=== PATIENT | female | born 1975 | race Two or more races ===

== ENCOUNTER 2025-06-09 09:27 | Emergency (ER) | payer OTHER ==
[~2025-06-09] VITALS: Ht 149.9 cm; Wt 48.8 kg
[2025-06-09] MEDS ORDERED: IBUP-1456 PO (09:48)
[2025-06-09] MEDS ORDERED: PENI500T2 PO (09:48)
--- NOTE | 2025-06-09 09:52 | ED.PDOC ---
Eye-HPI HPI Comments 50-year-old with no MHx presents with a sore throat generalized headache after returning from a cruise Has been feeling unwell since Tuesday night which began while they were still traveling home after a 14 day cruise in [place] [facility] [place] journey home took two days including a stop in [place] where they were too ill to visit a urgent care and reports that she has not seek medical care Denies chest pain shortness of breath Denies inability to move neck, history of meningitis Denies difficulty swallowing nor persistent salivation Denies fevers chills night sweats Denies persistent cough, runny nose, congestion Denies loss of appetite, unintentional weight loss over the past 3 months Denies voice changes Denies history of asthma or seasonal allergies Chief Complaint: Sore Throat Time Seen by MD: 09:33 Reviewed Notes: Nurses Notes, Medications, Allergies Allergies: Coded Allergies: NO KNOWN ALLERGIES (Unverified , 06/09/25) Home Meds Active Scripts Ibuprofen (Ibuprofen) 800 Mg Tab, 1 TAB PO TID for 10 Days, #30 TAB 0 Refills Prov:DREAD VOGT NP 06/09/25 Penicillin V Potassium (Veetids) 500 Mg Tab, 1 TAB PO BID for 10 Days, #20 TAB 0 Refills Prov:DREAD VOGT NP 06/09/25 Information Source: Patient Mode of Arrival: Ambulatory Past Medical History PAST MEDICAL HISTORY: Denies Surgical History: Denies all surgeries [employer] History: No Pertinent [employer] History All Other Systems: Reviewed and Negative (PER HPI) Physical Exam General Appearance: No Apparent Distress, Normal HEENT: Normal ENT Inspection, Pharyngeal Erythema (Tonsilar exudate), TMs Normal Neck: Full Range of Motion, Non-Tender, Normal, Normal Inspection Respiratory: Chest Non-Tender, Lungs Clear, No Accessory Muscle Use, No Respiratory Distress, Normal Breath Sounds Cardiovascular: No Edema, No JVD, No Murmur, No Gallop, Normal Peripheral Pulses, Regular Rate/Rhythm Breast Exam: Deferred Gastrointestinal: No Organomegaly, Non Tender, No Pulsatile Mass, Normal Bowel Sounds, Soft Genitalia: Deferred Pelvic: Deferred Rectal: Deferred Extremities: No calf tenderness, Normal capillary refill, Normal inspection, Normal range of motion, Non-tender, No pedal edema Musculoskeletal : Apperance: Normal Neurologic: Alert, 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 Was a procedure done?: No EENT DIFF Eye: Other Sore Throat: Streptococcal, Viral Pharyngitis, URI X-Ray, Labs, Meds, VS Vital Signs Date Time Temp Pulse Resp B/P (MAP) Pulse Ox O2 Delivery O2 Flow Rate FiO2 06/09/25 09:28 98.9 86 16 122/81 96 98.9 Current Medications Medications (Trade) Dose Ordered Sig/Vero Route Start Time Stop Time Status Last Admin Ketorolac Tromethamine (Toradol Injection) 30 mg ONCE ONCE IM 06/09/25 10:00 06/09/25 10:01 DC 06/09/25 10:01 X-Ray, Labs, Meds, VS Comment Exam/test findings consistent with strep throat infection. Advised to complete full course of prescribed antibiotics Encouraged fluid intake Acetaminophen to reduce pain/fever NSAIDs to reduce pain/fever Nonpharmacological recommendations given Warm salt water gargles Throat lozenges Humidified air Also advised to replace toothbrush after 3 days of antibiotic use, return to school after 24 hours of treatment (no longer contagious). Return precautions given Worsening pain Fevers past 48 hours after antibiotics Any neck pain, headache, vision issues, or other concerns Time of 1ST Reevaluation: 09:45 Reevaluation 1ST: Improved Patient Education/Counseling: Diagnosis, Treatment Family Education/Counseling: Diagnosis, Treatment SEPSIS Sepsis Screen Date sepsis recognized/suspect: Jun 09, 2025 Time Sepsis recognized/suspect: 927 Recent Procedure: No On Antibiotic Therapy: No Respiratory Rate >20: No Heart Rate >90: No Temp<36 C (96.8 F) or >38.3 C: No SBP <90 or MAP <65 mmHG: No New Acute Mental Status Change: No Is the patient on CPAP, BIPAP,: No Vital Signs Date Time Temp Pulse Resp B/P (MAP) Pulse Ox O2 Delivery O2 Flow Rate FiO2 06/09/25 09:28 98.9 86 16 122/81 96 98.9 Medications Medications Dose Ordered Sig/Vero Route Start Time Stop Time Status Last Admin Dose Admin Ketorolac Tromethamine 30 mg ONCE ONCE IM 06/09/25 10:00 06/09/25 10:01 DC 06/09/25 10:01 Departure 1 Departure Time of Disposition: 09:52 Impression: Primary Impression: Tonsillar exudate Disposition: 01 HOME / SELF CARE / HOMELESS Condition: Stable e-Prescriptions Ibuprofen (Ibuprofen) 800 Mg Tab 1 TAB PO TID for 10 Days, #30 TAB 0 Refills Prov: DREAD VOGT NP 06/09/25 Penicillin V Potassium (Veetids) 500 Mg Tab 1 TAB PO BID for 10 Days, #20 TAB 0 Refills Prov: DREAD VOGT NP 06/09/25 Discharged With: Self Critical Care Note Critical Care Time?: No Stability Stability form required: No Heart Score Heart Score: Heart Score Response (Comments) Value History N/A 0 EKG N/A 0 Age N/A 0 Risk Factors N/A 0 Troponin N/A 0 Total 0 DREAD VOGT NP Jun 09, 2025 09:52
[2025-06-09] MEDS: KETOROLAC TROMETH 30 MG/ML 1ML VIAL IM ONE (10:01)
[2025-06-09] MEDS ORDERED: KETOROLAC TROMETH 30 MG/ML 1ML VIAL ONE (10:02)
[2025-06-09 10:34] VITALS: BP 119/72; PULSE 64; RESP 16; TEMP 97.7; O2SAT 99
== END 2025-06-09 10:36 | disposition home or self-care (01) ==
LOC: ER 09:27
DX: J35.8 Other chronic diseases of tonsils and adenoids (principal); Z79.1 Long term (current) use of non-steroidal anti-inflammatories (NSAID); Z79.899 Other long term (current) drug therapy
CPT/HCPCS: 96372; 99283; J1885; J8540